=== PATIENT | male | born 1945 | race Caucasian/White ===

== ENCOUNTER 2022-08-10 14:17 | Inpatient (IN) | payer OTHER ==
[~2022-08-10] VITALS: Ht 167.6 cm; Wt 63.5 kg
[~2022-08-10 14:17] MED LIST: BUPR300T55 PO; BUSP10TA3 PO; GABA600T PO; GLU500 PO; LISI40TA13 PO; MV-M1TAB19 PO; NOR10 PO; PRAV40TA PO; ROPI2TAB4 PO; TERA10CA4 PO; [UNRECOGNIZED DRUG - OTHER] SUBCUT
[2022-08-10 14:18] VITALS: BP_SYST 143
[2022-08-10] MEDS ORDERED: KETOROLAC TROMETHAMINE 30 MG VIAL IVP ONE (14:45)
[2022-08-10] MEDS ORDERED: NACL 0.9% 1,000 ML IV ONE ×2 (14:45→18:45)
[2022-08-10] MEDS ORDERED: PERC10 PO (14:58)
[2022-08-10] MEDS ORDERED: CARV3.1246 PO (14:58)
[2022-08-10] MEDS ORDERED: INSU100V11 SQ (14:58)
[2022-08-10] MEDS ORDERED: VITA1CAP PO (14:58)
[2022-08-10 15:24] LABS: BASOPHILS % (AUTO) 0.2 % (0.0-2.0); EOSINOPHILS # (AUTO) 0.1 K/uL (0.0-0.4); EOSINOPHILS % (AUTO) 0.8 % (0.0-4.0); HEMATOCRIT 31.6 % (36-54); HEMOGLOBIN 10.7 g/dL (14.0-18.0); LYMPHOCYTES # (AUTO) 0.7 K/uL (1.0-5.5); LYMPHOCYTES % (AUTO) 7.2 % (20.5-51.5); MEAN CORPUSCULAR HEMOGLOBIN 30 pg (27-31); MEAN CORPUSCULAR HGB CONC 34 % (32-36); MEAN CORPUSCULAR VOLUME 88 fL (79.0-98.0); MONOCYTES # (AUTO) 0.7 K/uL (0.0-1.0); MONOCYTES % (AUTO) 7.2 % (1.7-9.3); NEUTROPHILS # (AUTO) 8.4 K/uL (1.8-7.7); NEUTROPHILS % (AUTO) 84.6 % (40.0-70.0); PLATELET COUNT (AUTO) 245 K/uL (130-430); RED BLOOD CELL COUNT(AUTO) 3.58 MIL/uL (4.2-6.2); RED CELL DISTRIBUTION WIDTH 14.7 % (9.0-15.0); WHITE BLOOD COUNT (AUTO) 9.9 K/uL (4.8-10.8)
[2022-08-10 15:45] LABS: ANION GAP 8 (5-15); CALCIUM 8.2 mg/dL (8.4-11.0); CHLORIDE 102 mmol/L (98-107); CREATININE 1.13 mg/dL (0.55-1.30); GLUCOSE 170 mg/dL (70-99); UREA NITROGEN, BLOOD 17 mg/dL (8-21)
[2022-08-10 15:50] LABS: ALANINE AMINOTRANSFERASE 13 U/L (12-78); ALBUMIN 2.1 g/dL (3.4-4.8); ASPARTATE AMINOTRANSFERASE 14 U/L (10-37); TOTAL BILIRUBIN 0.2 mg/dL (0.0-1.0)
[2022-08-10 18:22] LABS: BILIRUBIN,URINE NEGATIVE (NEGATIVE); BLOOD, URINE NEGATIVE (NEGATIVE); CLARITY/URINE CLEAR (CLEAR); COLOR,URINE YELLOW (YELLOW); GLUCOSE,URINE TRACE (NEGATIVE); KETONES,URINE NEGATIVE (NEGATIVE); LEUKOCYTE ESTERASE ,URINE NEGATIVE (NEGATIVE); NITRITE, URINE NEGATIVE (NEGATIVE); PH,URINE 5.5 (5.0-8.0); PROTEIN URINE NEGATIVE (NEGATIVE); UROBILINOGEN,URINE 0.2 (0.2-1.0)
[2022-08-10] MEDS ORDERED: D5NS 1,000 ML IV SCH (18:45)
[2022-08-10] MEDS ORDERED: PIPERACILLIN/TAZO 3.375 GM in NS 50 ML IV ONE (18:45)
[2022-08-10] MEDS ORDERED: ONDANSETRON HCL 4 MG/2 ML VIAL IVP PRN (18:45)
[2022-08-10] MEDS ORDERED: PIPERACILLIN/TAZOBACTAM 3.375 GM/VIAL (ZOSYN) IV ONE (18:59)
[2022-08-10] MEDS ORDERED: DEXTROSE 50% JECT 50 ML DISP.SYRIN ONE (21:54)
[2022-08-10] MEDS ORDERED: D5W 1,000 ML IV PRN (22:00)
[2022-08-10] MEDS ORDERED: DEXTROSE 50% JECT 50 ML DISP.SYRIN IVP PRN (22:00)
[2022-08-10] MEDS: D10W 1,000 ML IV SCH (22:14)
[2022-08-10 22:25] VITALS: BP_SYST 124
[2022-08-11 00:50] VITALS: BP_SYST 130
[2022-08-11] MEDS: D10W 1,000 ML IV SCH (06:25)
[2022-08-11 08:00] VITALS: BP_SYST 165
[2022-08-11] MEDS: MORPHINE 4 MG INJ. 4 MG/ML VIAL IVP PRN ×4 (11:07→21:02)
[2022-08-11 11:31] VITALS: BP_SYST 164
[2022-08-11] MEDS ORDERED: GADOTERATE MEGLUMINE 7.5 MMOL/15 ML VIAL IV ONE (11:40)
[2022-08-11] MEDS: LIPASE/PROTEASE/AMYLASE 1 CAP PO SCH ×2 (14:04→18:13)
[2022-08-11] MEDS ORDERED: D5W 1,000 ML IV SCH (14:15)
[2022-08-11] MEDS ORDERED: GASTROGRAFIN 120 ML ONE (14:41)
[2022-08-11 16:00] VITALS: BP_SYST 148
[2022-08-11] MEDS ORDERED: 0.45% NACL 1,000 ML IV SCH (18:45)
[2022-08-11] MEDS ORDERED: hydrALAZINE HCL 20 MG/ML VIAL IVP PRN (18:45)
[2022-08-11] MEDS ORDERED: BISACODYL 10 MG/SUPPOSITORY RC PRN (18:45)
[2022-08-11 20:20] VITALS: BP_SYST 147
[2022-08-11 23:30] VITALS: BP_SYST 148
[2022-08-11] MEDS: IPRATROPIUM/ALBUTEROL SULFATE 3 ML AMPUL.NEB (DUONEB) INH SCH (23:34)
[2022-08-12] VITALS: BP_SYST 145
[2022-08-12] MEDS: IPRATROPIUM/ALBUTEROL SULFATE 3 ML AMPUL.NEB (DUONEB) INH SCH ×5 (04:02→19:40)
[2022-08-12] MEDS: INSULIN REGULAR, HUMAN 100 UNITS/ML, 3 ML VIAL (humuLIN R) SUBCUT PRN ×2 (06:43→13:32)
[2022-08-12 08:08] LABS: BILIRUBIN,URINE NEGATIVE (NEGATIVE); BLOOD, URINE 3+ (NEGATIVE); COLOR,URINE YELLOW (YELLOW); GLUCOSE,URINE 1+ (NEGATIVE); KETONES,URINE NEGATIVE (NEGATIVE); LEUKOCYTE ESTERASE ,URINE NEGATIVE (NEGATIVE); NITRITE, URINE NEGATIVE (NEGATIVE); PH,URINE 6.5 (5.0-8.0); PROTEIN URINE 1+ (NEGATIVE); UROBILINOGEN,URINE 0.2 (0.2-1.0)
[2022-08-12 09:38] LABS: CLARITY/URINE SLIGHTLY HAZY (CLEAR)
[2022-08-12 09:41] LABS: BACTERIA,URINE FEW /HPF (None Seen); WBC,URINE 0-3 /HPF (0-3)
[2022-08-12] MEDS: LIPASE/PROTEASE/AMYLASE 1 CAP PO SCH ×2 (10:44→12:00)
[2022-08-12 12:00] VITALS: BP_SYST 108
[2022-08-12 16:00] VITALS: BP_SYST 154
[2022-08-12] MEDS ORDERED: INSULIN REGULAR, HUMAN 100 UNITS/ML, 3 ML VIAL SUBCUT ONE ×2 (20:30→20:45)
[2022-08-12] MEDS ORDERED: INSULIN GLARGINE 100 UNITS/ML, 10 ML VIAL SUBCUT ONE (20:45)
== END 2022-08-12 21:00 | disposition left against medical advice (07) | DRG 388 ==
LOC: SED 14:17 → STU 18:36
PROVIDERS: ADMIT Internal Medicine; ATTEND Internal Medicine
DX: K56.7 Ileus, unspecified (principal); E43 Unspecified severe protein-calorie malnutrition; J96.01 Acute respiratory failure with hypoxia; E87.20 Acidosis, unspecified; K86.0 Alcohol-induced chronic pancreatitis; K86.2 Cyst of pancreas; K59.00 Constipation, unspecified; E78.5 Hyperlipidemia, unspecified; I12.9 Hypertensive chronic kidney disease with stage 1 through stage 4 chronic kidney disease, or unspecified chronic kidney disease; E11.22 Type 2 diabetes mellitus with diabetic chronic kidney disease; N18.2 Chronic kidney disease, stage 2 (mild); M19.90 Unspecified osteoarthritis, unspecified site; R33.9 Retention of urine, unspecified; F10.10 Alcohol abuse, uncomplicated; Y90.9 Presence of alcohol in blood, level not specified; Z20.822 Contact with and (suspected) exposure to COVID-19; Z88.5 Allergy status to narcotic agent; Z79.899 Other long term (current) drug therapy; Z68.22 Body mass index [BMI] 22.0-22.9, adult
CPT/HCPCS: 36415; 71045; 74183; 74250-TC; 76376; 80053; 81000; 81003; 83605; 85025; 87040; 87081; 94640; 94760; 96365; 96375; 97116-GP; 97163-GP; 99291; A9575; G0378; J1815; J1885; J2270; J2405; J2543; Q9963

== ENCOUNTER 2023-04-21 18:35 | Inpatient (IN) | payer OTHER ==
[~2023-04-21] VITALS: Ht 167.6 cm; Wt 57.6 kg
[~2023-04-21 18:35] MED LIST changes: +CARV3.1246 PO; +INSU100V11 SQ; +PERC10 PO; +VITA1CAP PO
[2023-04-21 18:51] VITALS: BP_SYST 101; PULSE 74; RESP 16; TEMP 97.9; O2SAT 97
[2023-04-21] MEDS ORDERED: PIPERACILLIN/TAZO 3.375 GM in NS 50 ML IV ONE (21:15)
[2023-04-21] MEDS ORDERED: NACL 0.9% 1,000 ML IV ONE (21:15)
[2023-04-21] MEDS ORDERED: PIPERACILLIN/TAZOBACTAM 3.375 GM/VIAL (ZOSYN) IV ONE (21:44)
[2023-04-21 21:45] LABS: BASOPHILS % (AUTO) 0.3 % (0.0-2.0); EOSINOPHILS # (AUTO) 0.1 K/uL (0.0-0.4); EOSINOPHILS % (AUTO) 0.9 % (0.0-4.0); HEMATOCRIT 35.5 % (36-54); HEMOGLOBIN 11.5 g/dL (14.0-18.0); LYMPHOCYTES # (AUTO) 0.7 K/uL (1.0-5.5); LYMPHOCYTES % (AUTO) 7.9 % (20.5-51.5); MEAN CORPUSCULAR HEMOGLOBIN 30 pg (27-31); MEAN CORPUSCULAR HGB CONC 33 % (32-36); MEAN CORPUSCULAR VOLUME 92 fL (79.0-98.0); MONOCYTES % (AUTO) 11.5 % (1.7-9.3); NEUTROPHILS % (AUTO) 79.4 % (40.0-70.0); PLATELET COUNT (AUTO) 236 K/uL (130-430); RED BLOOD CELL COUNT(AUTO) 3.87 MIL/uL (4.2-6.2); RED CELL DISTRIBUTION WIDTH 13.5 % (9.0-15.0); WHITE BLOOD COUNT (AUTO) 8.9 K/uL (4.8-10.8)
[2023-04-21 22:00] LABS: ANION GAP 11 (5-15); CALCIUM 8.8 mg/dL (8.4-11.0); CARBON DIOXIDE 24 mmol/L (23-29); CHLORIDE 101 mmol/L (98-107); CREATININE 0.97 mg/dL (0.55-1.30); GLUCOSE 138 mg/dL (74-106); SODIUM SERUM 136 mmol/L (136-145); UREA NITROGEN, BLOOD 17 mg/dL (8-21)
[2023-04-21] MEDS ORDERED: ONDANSETRON HCL 4 MG/2 ML VIAL IVP ONE (22:00)
[2023-04-21] MEDS ORDERED: MORPHINE 4 MG INJ. 4 MG/ML VIAL IVP ONE (22:00)
[2023-04-21 22:05] LABS: ALANINE AMINOTRANSFERASE 16 U/L (12-78); ALBUMIN 2.5 g/dL (3.4-4.8); ASPARTATE AMINOTRANSFERASE 21 U/L (10-37); TOTAL BILIRUBIN 0.4 mg/dL (0.0-1.0); TOTAL PROTEIN, SERUM 6.8 g/dL (6.4-8.3)
[2023-04-21 22:10] LABS: POTASSIUM 4.4 mmol/L (3.5-5.1)
[2023-04-21 22:19] LABS: INR 1.3 (0.80-1.20); PROTHROMBIN TIME 13.1 SECS (9.5-12.5)
[2023-04-21] MEDS ORDERED: NACL 0.9% 1,000 ML IV SCH (23:00)
[2023-04-21] MEDS ORDERED: ONDANSETRON HCL 4 MG/2 ML VIAL IVP PRN (23:00)
[2023-04-21] MEDS ORDERED: ACETAMINOPHEN 325 MG TABLET PO PRN (23:00)
[2023-04-21 23:47] LABS: BILIRUBIN,URINE NEGATIVE (NEGATIVE); BLOOD, URINE NEGATIVE (NEGATIVE); COLOR,URINE YELLOW (YELLOW); GLUCOSE,URINE NEGATIVE (NEGATIVE); KETONES,URINE NEGATIVE (NEGATIVE); NITRITE, URINE POSITIVE (NEGATIVE); PH,URINE 5.5 (5.0-8.0); PROTEIN URINE 2+ (NEGATIVE); UROBILINOGEN,URINE 0.2 (0.2-1.0)
[2023-04-21 23:57] LABS: CLARITY/URINE CLOUDY (CLEAR); LEUKOCYTE ESTERASE ,URINE 1+ (NEGATIVE)
[2023-04-22 00:02] LABS: BACTERIA,URINE MANY /HPF (None Seen); RBC,URINE 0-3 /HPF (0-3); WBC,URINE 20-50 /HPF (0-3)
[2023-04-22 00:07] VITALS: BP_SYST 157; PULSE 58; RESP 18; TEMP 97.9; O2SAT 97
[2023-04-22 05:05] LABS: BASOPHILS % (AUTO) 0.7 % (0.0-2.0); EOSINOPHILS # (AUTO) 0.2 K/uL (0.0-0.4); EOSINOPHILS % (AUTO) 2.6 % (0.0-4.0); HEMOGLOBIN 9.8 g/dL (14.0-18.0); LYMPHOCYTES # (AUTO) 0.8 K/uL (1.0-5.5); LYMPHOCYTES % (AUTO) 12.2 % (20.5-51.5); MEAN CORPUSCULAR HEMOGLOBIN 30 pg (27-31); MEAN CORPUSCULAR HGB CONC 33 % (32-36); MEAN CORPUSCULAR VOLUME 91 fL (79.0-98.0); MONOCYTES # (AUTO) 0.8 K/uL (0.0-1.0); MONOCYTES % (AUTO) 11.2 % (1.7-9.3); NEUTROPHILS # (AUTO) 4.9 K/uL (1.8-7.7); NEUTROPHILS % (AUTO) 73.3 % (40.0-70.0); PLATELET COUNT (AUTO) 229 K/uL (130-430); RED CELL DISTRIBUTION WIDTH 13.4 % (9.0-15.0); WHITE BLOOD COUNT (AUTO) 6.8 K/uL (4.8-10.8)
[2023-04-22 05:39] LABS: ALANINE AMINOTRANSFERASE 14 U/L (12-78); ANION GAP 7 (5-15); ASPARTATE AMINOTRANSFERASE 10 U/L (10-37); CALCIUM 8.1 mg/dL (8.4-11.0); CARBON DIOXIDE 26 mmol/L (23-29); CHLORIDE 103 mmol/L (98-107); CREATININE 0.88 mg/dL (0.55-1.30); GLUCOSE 65 mg/dL (74-106); PHOSPHORUS 3.3 mg/dL (2.7-4.5); SODIUM SERUM 136 mmol/L (136-145); TOTAL BILIRUBIN 0.3 mg/dL (0.0-1.0); TOTAL PROTEIN, SERUM 5.4 g/dL (6.4-8.3); UREA NITROGEN, BLOOD 14 mg/dL (8-21)
[2023-04-22 06:01] LABS: POTASSIUM 2.7 mmol/L (3.5-5.1)
[2023-04-22] MEDS ORDERED: VANCOMYCIN HCL 1000 MG/VIAL IV ONE (06:12)
[2023-04-22] MEDS ORDERED: PIPERACILLIN/TAZOBACTAM 3.375 GM/VIAL (ZOSYN) IV ONE (06:12)
[2023-04-22] MEDS: PIPERACILLIN/TAZO 3.375/DEX-IS 50 ML IV SCH ×4 (06:19→23:22)
[2023-04-22 06:24] LABS: HEMOGLOBIN A1C 12.52 % (<5.7)
[2023-04-22] MEDS ORDERED: D5/0.45 NS 1,000 ML IV SCH (06:45)
[2023-04-22] MEDS ORDERED: VANCOMYCIN HCL 1 GM/NS PREMIX 250 ML IV ONE (07:00)
[2023-04-22 08:00] VITALS: BP_SYST 155; PULSE 67; RESP 14; TEMP 97.7; O2SAT 95
[2023-04-22] MEDS ORDERED: KCL 20 mEq in 100 mL (PREMIX) 100 ML IV ONE ×2 (08:00→10:00)
[2023-04-22 11:02] VITALS: O2SAT 95
[2023-04-22 12:00] VITALS: BP_SYST 104; PULSE 60; RESP 14; TEMP 97.7; O2SAT 97
[2023-04-22 13:01] LABS: PROTHROMBIN TIME 10.8 SECS (9.5-12.5)
[2023-04-22] MEDS ORDERED: PRAVASTATIN SODIUM 20 MG TABLET (PRAVACHOL) PO SCH (14:45)
[2023-04-22] MEDS: traMADol HCL HCL 50 MG TABLET (ULTRAM) PO PRN ×2 (14:55→21:12)
[2023-04-22] MEDS ORDERED: amLODIPine BESYLATE 10 MG TABLET PO ONE (15:00)
[2023-04-22] MEDS ORDERED: lisinopriL 20 MG TABLET PO ONE (15:00)
[2023-04-22] MEDS ORDERED: ACETAMINOPHEN 325 MG TABLET PO PRN (15:00)
[2023-04-22] MEDS: VANCOMYCIN HCL 1,000 MG in NS 250 ML IV SCH (15:44)
[2023-04-22 16:00] VITALS: BP_SYST 165; PULSE 64; RESP 18; TEMP 98.6; O2SAT 96
[2023-04-22 20:00] VITALS: BP_SYST 143; PULSE 76; RESP 18; TEMP 97.6; O2SAT 95
[2023-04-22] MEDS: CARVEDILOL 3.125 MG TABLET (COREG) PO SCH (21:12)
[2023-04-22] MEDS: ATORVASTATIN 10 MG TABLET PO SCH (21:12)
[2023-04-22] MEDS: INSULIN GLARGINE 100 UNITS/ML, 10 ML VIAL SUBCUT SCH (21:13)
[2023-04-22] MEDS: INSULIN REGULAR, HUMAN 100 UNITS/ML, 3 ML VIAL (humuLIN R) SUBCUT PRN (21:15)
[2023-04-23] VITALS: BP_SYST 131; PULSE 75; RESP 16; TEMP 97.7; O2SAT 95
[2023-04-23] MEDS: VANCOMYCIN HCL 1,000 MG in NS 250 ML IV SCH ×3 (00:20→16:00)
[2023-04-23] MEDS: NACL 0.9% 1,000 ML IV SCH ×3 (01:55→23:11)
[2023-04-23] MEDS: traMADol HCL HCL 50 MG TABLET (ULTRAM) PO PRN ×3 (04:41→20:50)
[2023-04-23] MEDS: PIPERACILLIN/TAZO 3.375/DEX-IS 50 ML IV SCH ×4 (05:12→23:37)
[2023-04-23 06:47] LABS: BASOPHILS % (AUTO) 0.7 % (0.0-2.0); EOSINOPHILS # (AUTO) 0.3 K/uL (0.0-0.4); EOSINOPHILS % (AUTO) 4.9 % (0.0-4.0); HEMATOCRIT 31.9 % (36-54); HEMOGLOBIN 10.6 g/dL (14.0-18.0); LYMPHOCYTES # (AUTO) 0.7 K/uL (1.0-5.5); LYMPHOCYTES % (AUTO) 11.3 % (20.5-51.5); MEAN CORPUSCULAR HEMOGLOBIN 30 pg (27-31); MEAN CORPUSCULAR HGB CONC 33 % (32-36); MEAN CORPUSCULAR VOLUME 91 fL (79.0-98.0); MONOCYTES # (AUTO) 0.7 K/uL (0.0-1.0); MONOCYTES % (AUTO) 11.7 % (1.7-9.3); NEUTROPHILS # (AUTO) 4.4 K/uL (1.8-7.7); NEUTROPHILS % (AUTO) 71.4 % (40.0-70.0); PLATELET COUNT (AUTO) 277 K/uL (130-430); RED CELL DISTRIBUTION WIDTH 13.4 % (9.0-15.0); WHITE BLOOD COUNT (AUTO) 6.1 K/uL (4.8-10.8)
[2023-04-23 07:08] LABS: ALANINE AMINOTRANSFERASE 12 U/L (12-78); ANION GAP 6 (5-15); ASPARTATE AMINOTRANSFERASE 9 U/L (10-37); CALCIUM 8.2 mg/dL (8.4-11.0); CARBON DIOXIDE 27 mmol/L (23-29); CHLORIDE 100 mmol/L (98-107); CREATININE 1.04 mg/dL (0.55-1.30); GLUCOSE 138 mg/dL (74-106); POTASSIUM 3.4 mmol/L (3.5-5.1); SODIUM SERUM 133 mmol/L (136-145); TOTAL BILIRUBIN 0.3 mg/dL (0.0-1.0); TOTAL PROTEIN, SERUM 5.5 g/dL (6.4-8.3); UREA NITROGEN, BLOOD 12 mg/dL (8-21)
[2023-04-23 08:44] VITALS: BP_SYST 186; PULSE 68; RESP 18; TEMP 98.4; O2SAT 96
[2023-04-23] MEDS: amLODIPine BESYLATE 10 MG TABLET PO SCH (08:52)
[2023-04-23] MEDS: CARVEDILOL 3.125 MG TABLET (COREG) PO SCH ×2 (08:54→20:50)
[2023-04-23] MEDS: buPROPion HCL 150 MG XL TAB PO SCH (08:54)
[2023-04-23] MEDS: lisinopriL 20 MG TABLET PO SCH (08:55)
[2023-04-23] MEDS ORDERED: hydrALAZINE HCL 20 MG/ML VIAL IVP PRN (09:45)
[2023-04-23] MEDS ORDERED: POTASSIUM CHLORIDE 20 MEQ TAB.PRT.SR PO ONE (10:45)
[2023-04-23] MEDS: INSULIN REGULAR, HUMAN 100 UNITS/ML, 3 ML VIAL (humuLIN R) SUBCUT PRN ×2 (11:58→20:58)
[2023-04-23 12:50] VITALS: BP_SYST 154; PULSE 76; RESP 18; TEMP 98.4; O2SAT 94
[2023-04-23 16:10] VITALS: BP_SYST 161; PULSE 73; RESP 18; TEMP 98.2; O2SAT 93
[2023-04-23 20:00] VITALS: BP_SYST 152; PULSE 63; RESP 18; TEMP 97.7; O2SAT 96
[2023-04-23] MEDS: ATORVASTATIN 10 MG TABLET PO SCH (20:49)
[2023-04-23] MEDS: INSULIN GLARGINE 100 UNITS/ML, 10 ML VIAL SUBCUT SCH (20:53)
[2023-04-24] VITALS (8 sets, daily range): BP systolic 146–179; PULSE 20–89; RESP 16–20; TEMP 97.4–97.9; O2SAT 95–97
[2023-04-24] MEDS: VANCOMYCIN HCL 1,000 MG in NS 250 ML IV SCH ×3 (00:16→16:11)
[2023-04-24] MEDS: traMADol HCL HCL 50 MG TABLET (ULTRAM) PO PRN ×4 (03:07→19:20)
[2023-04-24] MEDS: PIPERACILLIN/TAZO 3.375/DEX-IS 50 ML IV SCH ×3 (06:20→18:14)
[2023-04-24] MEDS: BALSAM PERU/CASTOR OIL 56.7 GM OINT...G. TP SCH (09:40)
[2023-04-24] MEDS: buPROPion HCL 150 MG XL TAB PO SCH (09:41)
[2023-04-24] MEDS: lisinopriL 20 MG TABLET PO SCH (09:41)
[2023-04-24] MEDS: amLODIPine BESYLATE 10 MG TABLET PO SCH (09:41)
[2023-04-24] MEDS: CARVEDILOL 3.125 MG TABLET (COREG) PO SCH ×2 (09:42→20:28)
[2023-04-24] MEDS: ATORVASTATIN 10 MG TABLET PO SCH (20:27)
[2023-04-24] MEDS: INSULIN GLARGINE 100 UNITS/ML, 10 ML VIAL SUBCUT SCH (20:34)
[2023-04-24] MEDS: INSULIN REGULAR, HUMAN 100 UNITS/ML, 3 ML VIAL (humuLIN R) SUBCUT PRN (20:36)
[2023-04-24] MEDS: NACL 0.9% 1,000 ML IV SCH (23:25)
[2023-04-25] MEDS: PIPERACILLIN/TAZO 3.375/DEX-IS 50 ML IV SCH ×3 (00:02→11:16)
[2023-04-25] MEDS: VANCOMYCIN HCL 1,000 MG in NS 250 ML IV SCH (00:04)
[2023-04-25 00:12] VITALS: BP_SYST 148; PULSE 73; RESP 18; TEMP 97.4; O2SAT 96
[2023-04-25] MEDS: traMADol HCL HCL 50 MG TABLET (ULTRAM) PO PRN (01:02)
[2023-04-25] MEDS: MORPHINE 2 MG/ML INJ. SYRINGE IVP PRN (05:08)
[2023-04-25] MEDS: INSULIN REGULAR, HUMAN 100 UNITS/ML, 3 ML VIAL (humuLIN R) SUBCUT PRN ×4 (06:39→20:36)
[2023-04-25 06:47] LABS: BASOPHILS % (AUTO) 0.7 % (0.0-2.0); EOSINOPHILS # (AUTO) 0.1 K/uL (0.0-0.4); EOSINOPHILS % (AUTO) 2.3 % (0.0-4.0); LYMPHOCYTES # (AUTO) 0.6 K/uL (1.0-5.5); LYMPHOCYTES % (AUTO) 10.6 % (20.5-51.5); MEAN CORPUSCULAR HEMOGLOBIN 29 pg (27-31); MEAN CORPUSCULAR HGB CONC 33 % (32-36); MEAN CORPUSCULAR VOLUME 90 fL (79.0-98.0); MONOCYTES # (AUTO) 0.7 K/uL (0.0-1.0); MONOCYTES % (AUTO) 12.9 % (1.7-9.3); NEUTROPHILS # (AUTO) 4.1 K/uL (1.8-7.7); NEUTROPHILS % (AUTO) 73.5 % (40.0-70.0); PLATELET COUNT (AUTO) 342 K/uL (130-430); RED BLOOD CELL COUNT(AUTO) 4.11 MIL/uL (4.2-6.2); RED CELL DISTRIBUTION WIDTH 13.6 % (9.0-15.0); WHITE BLOOD COUNT (AUTO) 5.6 K/uL (4.8-10.8)
[2023-04-25 07:05] LABS: ALANINE AMINOTRANSFERASE 15 U/L (12-78); ALBUMIN 2.2 g/dL (3.4-4.8); ANION GAP 10 (5-15); ASPARTATE AMINOTRANSFERASE 14 U/L (10-37); CALCIUM 8.4 mg/dL (8.4-11.0); CARBON DIOXIDE 25 mmol/L (23-29); CHLORIDE 101 mmol/L (98-107); CREATININE 0.99 mg/dL (0.55-1.30); GLUCOSE 156 mg/dL (74-106); SODIUM SERUM 136 mmol/L (136-145); TOTAL BILIRUBIN 0.3 mg/dL (0.0-1.0); TOTAL PROTEIN, SERUM 5.9 g/dL (6.4-8.3); UREA NITROGEN, BLOOD 13 mg/dL (8-21)
[2023-04-25 07:34] LABS: POTASSIUM 2.9 mmol/L (3.5-5.1)
[2023-04-25 08:00] VITALS: BP_SYST 118; PULSE 76; RESP 16; TEMP 98.4; O2SAT 98
[2023-04-25] MEDS ORDERED: KCL 40 mEq in 100 mL (PREMIX) 100 ML IV ONE (08:30)
[2023-04-25] MEDS: TAMSULOSIN HCL 0.4 MG CAP PO SCH (09:26)
[2023-04-25] MEDS: buPROPion HCL 150 MG XL TAB PO SCH (09:26)
[2023-04-25] MEDS: lisinopriL 20 MG TABLET PO SCH (09:27)
[2023-04-25] MEDS: amLODIPine BESYLATE 10 MG TABLET PO SCH (09:27)
[2023-04-25] MEDS: CARVEDILOL 3.125 MG TABLET (COREG) PO SCH ×2 (09:28→20:33)
[2023-04-25] MEDS: BALSAM PERU/CASTOR OIL 56.7 GM OINT...G. TP SCH (09:32)
[2023-04-25] MEDS: POTASSIUM CHLORIDE 20 mEq in 100 mL (PREMIX) 100 ML x 2 doses IV SCH ×2 (09:36→11:16)
[2023-04-25 12:27] VITALS: BP_SYST 129; PULSE 75; RESP 17; TEMP 98; O2SAT 98
[2023-04-25 15:35] VITALS: BP_SYST 121; PULSE 77; RESP 16; TEMP 98.2; O2SAT 97
[2023-04-25 16:00] VITALS: BP_SYST 122; PULSE 84; RESP 18; TEMP 98.2; O2SAT 97
[2023-04-25] MEDS: NACL 0.9% 1,000 ML IV SCH (16:43)
[2023-04-25 20:00] VITALS: BP_SYST 119; PULSE 80; RESP 18; TEMP 98; O2SAT 98
[2023-04-25] MEDS: ATORVASTATIN 10 MG TABLET PO SCH (20:34)
[2023-04-25] MEDS: ZOLPIDEM TARTRATE 5 MG TABLET PO PRN (20:57)
[2023-04-25] MEDS ORDERED: INSULIN GLARGINE 100 UNITS/ML, 10 ML VIAL SUBCUT SCH (21:00)
[2023-04-26 00:51] VITALS: PULSE 71; RESP 18; TEMP 97.1; O2SAT 96
[2023-04-26] MEDS: MORPHINE 2 MG/ML INJ. SYRINGE IVP PRN (00:57)
[2023-04-26 06:05] LABS: BASOPHILS % (AUTO) 0.5 % (0.0-2.0); EOSINOPHILS # (AUTO) 0.2 K/uL (0.0-0.4); EOSINOPHILS % (AUTO) 2.3 % (0.0-4.0); HEMATOCRIT 36.9 % (36-54); HEMOGLOBIN 12.3 g/dL (14.0-18.0); LYMPHOCYTES # (AUTO) 1.5 K/uL (1.0-5.5); MEAN CORPUSCULAR HEMOGLOBIN 30 pg (27-31); MEAN CORPUSCULAR HGB CONC 33 % (32-36); MEAN CORPUSCULAR VOLUME 89 fL (79.0-98.0); MONOCYTES % (AUTO) 12.2 % (1.7-9.3); NEUTROPHILS # (AUTO) 5.7 K/uL (1.8-7.7); PLATELET COUNT (AUTO) 396 K/uL (130-430); RED BLOOD CELL COUNT(AUTO) 4.15 MIL/uL (4.2-6.2); RED CELL DISTRIBUTION WIDTH 13.5 % (9.0-15.0); WHITE BLOOD COUNT (AUTO) 8.5 K/uL (4.8-10.8)
[2023-04-26 06:59] LABS: ALANINE AMINOTRANSFERASE 15 U/L (12-78); ALBUMIN 2.4 g/dL (3.4-4.8); ANION GAP 7 (5-15); ASPARTATE AMINOTRANSFERASE 15 U/L (10-37); CALCIUM 8.7 mg/dL (8.4-11.0); CARBON DIOXIDE 29 mmol/L (23-29); CHLORIDE 102 mmol/L (98-107); CREATININE 0.96 mg/dL (0.55-1.30); SODIUM SERUM 138 mmol/L (136-145); TOTAL BILIRUBIN 0.3 mg/dL (0.0-1.0); TOTAL PROTEIN, SERUM 6.2 g/dL (6.4-8.3); UREA NITROGEN, BLOOD 9 mg/dL (8-21); VANCOMYCIN,RANDOM 20.6 ug/mL (20.0-30.0)
[2023-04-26 07:38] LABS: GLUCOSE 46 mg/dL (74-106); POTASSIUM 2.5 mmol/L (3.5-5.1)
[2023-04-26 08:00] VITALS: BP_SYST 122; PULSE 78; RESP 18; TEMP 98; O2SAT 96; O2SAT 98
[2023-04-26] MEDS ORDERED: KCL 40 mEq in 100 mL (PREMIX) 100 ML IV ONE (08:30)
[2023-04-26] MEDS ORDERED: POTASSIUM CHLORIDE 20 MEQ TAB.PRT.SR PO ONE (08:45)
[2023-04-26] MEDS: NACL 0.9% 1,000 ML IV SCH (09:05)
[2023-04-26] MEDS: lisinopriL 20 MG TABLET PO SCH (09:11)
[2023-04-26] MEDS: TAMSULOSIN HCL 0.4 MG CAP PO SCH (09:11)
[2023-04-26] MEDS: CARVEDILOL 3.125 MG TABLET (COREG) PO SCH ×2 (09:11→21:23)
[2023-04-26] MEDS: buPROPion HCL 150 MG XL TAB PO SCH (09:12)
[2023-04-26] MEDS: amLODIPine BESYLATE 10 MG TABLET PO SCH ×2 (09:13→21:22)
[2023-04-26] MEDS: BALSAM PERU/CASTOR OIL 56.7 GM OINT...G. TP SCH (09:16)
[2023-04-26] MEDS: POTASSIUM CHLORIDE 20 mEq in 100 mL (PREMIX) 100 ML x 2 doses IV SCH ×2 (09:26→11:15)
[2023-04-26] MEDS ORDERED: levoFLOXacin 500 MG TABLET PO SCH (10:00)
[2023-04-26 12:00] VITALS: BP_SYST 125; PULSE 75; RESP 17; TEMP 97.5; O2SAT 97
[2023-04-26] MEDS: INSULIN REGULAR, HUMAN 100 UNITS/ML, 3 ML VIAL (humuLIN R) SUBCUT PRN ×3 (12:12→21:33)
[2023-04-26 16:11] VITALS: BP_SYST 123; PULSE 77; RESP 18; TEMP 97.9; O2SAT 96
[2023-04-26] MEDS: traMADol HCL HCL 50 MG TABLET (ULTRAM) PO PRN (16:17)
[2023-04-26] MEDS: VANCOMYCIN HCL 750 MG in NS 250 ML IV SCH (17:48)
[2023-04-26] MEDS ORDERED: VANCOMYCIN HCL 1,000 MG in NS 250 ML IV SCH (18:00)
[2023-04-26 20:00] VITALS: BP_SYST 157; PULSE 90; RESP 18; TEMP 98.4; O2SAT 96
[2023-04-26] MEDS: ATORVASTATIN 10 MG TABLET PO SCH (21:21)
[2023-04-26] MEDS: INSULIN GLARGINE 100 UNITS/ML, 10 ML VIAL SUBCUT SCH (21:32)
[2023-04-27] VITALS (7 sets, daily range): BP systolic 154–162; PULSE 80–93; RESP 15–17; TEMP 97.5–98.6; O2SAT 94–97
[2023-04-27] MEDS: VANCOMYCIN HCL 750 MG in NS 250 ML IV SCH ×2 (05:27→17:59)
[2023-04-27 06:45] LABS: BASOPHILS # (AUTO) 0.1 K/uL (0.0-0.2); BASOPHILS % (AUTO) 0.6 % (0.0-2.0); EOSINOPHILS # (AUTO) 0.1 K/uL (0.0-0.4); EOSINOPHILS % (AUTO) 1.6 % (0.0-4.0); HEMATOCRIT 35.3 % (36-54); HEMOGLOBIN 11.5 g/dL (14.0-18.0); LYMPHOCYTES # (AUTO) 1.1 K/uL (1.0-5.5); LYMPHOCYTES % (AUTO) 13.4 % (20.5-51.5); MEAN CORPUSCULAR HEMOGLOBIN 29 pg (27-31); MEAN CORPUSCULAR HGB CONC 33 % (32-36); MEAN CORPUSCULAR VOLUME 90 fL (79.0-98.0); MONOCYTES # (AUTO) 0.9 K/uL (0.0-1.0); MONOCYTES % (AUTO) 11.1 % (1.7-9.3); NEUTROPHILS % (AUTO) 73.3 % (40.0-70.0); PLATELET COUNT (AUTO) 377 K/uL (130-430); RED BLOOD CELL COUNT(AUTO) 3.91 MIL/uL (4.2-6.2); RED CELL DISTRIBUTION WIDTH 13.5 % (9.0-15.0); WHITE BLOOD COUNT (AUTO) 8.2 K/uL (4.8-10.8)
[2023-04-27 07:11] LABS: ALANINE AMINOTRANSFERASE 19 U/L (12-78); ALBUMIN 2.4 g/dL (3.4-4.8); ANION GAP 8 (5-15); ASPARTATE AMINOTRANSFERASE 19 U/L (10-37); CALCIUM 8.7 mg/dL (8.4-11.0); CARBON DIOXIDE 28 mmol/L (23-29); CHLORIDE 102 mmol/L (98-107); CREATININE 1.11 mg/dL (0.55-1.30); GLUCOSE 52 mg/dL (74-106); POTASSIUM 3.4 mmol/L (3.5-5.1); SODIUM SERUM 138 mmol/L (136-145); TOTAL BILIRUBIN 0.2 mg/dL (0.0-1.0); TOTAL PROTEIN, SERUM 6.1 g/dL (6.4-8.3); UREA NITROGEN, BLOOD 11 mg/dL (8-21)
[2023-04-27] MEDS: TAMSULOSIN HCL 0.4 MG CAP PO SCH (10:06)
[2023-04-27] MEDS: buPROPion HCL 150 MG XL TAB PO SCH (10:06)
[2023-04-27] MEDS: lisinopriL 20 MG TABLET PO SCH (10:06)
[2023-04-27] MEDS: POTASSIUM CHLORIDE 20 MEQ TAB.PRT.SR PO SCH ×2 (10:07→20:26)
[2023-04-27] MEDS: CARVEDILOL 3.125 MG TABLET (COREG) PO SCH ×2 (10:07→20:27)
[2023-04-27] MEDS: BALSAM PERU/CASTOR OIL 56.7 GM OINT...G. TP SCH (10:08)
[2023-04-27] MEDS: MORPHINE 2 MG/ML INJ. SYRINGE IVP PRN (10:41)
[2023-04-27] MEDS: INSULIN REGULAR, HUMAN 100 UNITS/ML, 3 ML VIAL (humuLIN R) SUBCUT PRN ×2 (17:43→20:30)
[2023-04-27] MEDS: ATORVASTATIN 10 MG TABLET PO SCH (20:27)
[2023-04-27] MEDS: amLODIPine BESYLATE 10 MG TABLET PO SCH (20:27)
[2023-04-27] MEDS: INSULIN GLARGINE 100 UNITS/ML, 10 ML VIAL SUBCUT SCH (20:30)
[2023-04-27] MEDS: ZOLPIDEM TARTRATE 5 MG TABLET PO PRN (22:03)
[2023-04-28 00:33] VITALS: BP_SYST 155; PULSE 88; RESP 17; TEMP 98.2; O2SAT 93
[2023-04-28] MEDS: VANCOMYCIN HCL 750 MG in NS 250 ML IV SCH ×2 (05:09→17:51)
[2023-04-28 08:00] VITALS: BP_SYST 162; PULSE 88; RESP 15; TEMP 98.2; O2SAT 95
[2023-04-28] MEDS: TAMSULOSIN HCL 0.4 MG CAP PO SCH (09:45)
[2023-04-28] MEDS: BALSAM PERU/CASTOR OIL 56.7 GM OINT...G. TP SCH (09:45)
[2023-04-28] MEDS: buPROPion HCL 150 MG XL TAB PO SCH (09:45)
[2023-04-28] MEDS: POTASSIUM CHLORIDE 20 MEQ TAB.PRT.SR PO SCH ×2 (09:45→20:35)
[2023-04-28] MEDS: lisinopriL 20 MG TABLET PO SCH (09:46)
[2023-04-28] MEDS: CARVEDILOL 3.125 MG TABLET (COREG) PO SCH ×2 (09:49→20:35)
[2023-04-28 11:32] VITALS: BP_SYST 173; PULSE 71; RESP 20; TEMP 98.4; O2SAT 95
[2023-04-28] MEDS ORDERED: ALPRAZolam 0.25 MG TABLET PO PRN (15:15)
[2023-04-28 16:46] VITALS: BP_SYST 162; PULSE 87; RESP 19; TEMP 98.8; O2SAT 96
[2023-04-28] MEDS: INSULIN REGULAR, HUMAN 100 UNITS/ML, 3 ML VIAL (humuLIN R) SUBCUT PRN ×2 (17:26→20:47)
[2023-04-28 20:00] VITALS: BP_SYST 150; PULSE 91; RESP 18; TEMP 98.1; O2SAT 93
[2023-04-28] MEDS: ATORVASTATIN 10 MG TABLET PO SCH (20:35)
[2023-04-28] MEDS: amLODIPine BESYLATE 10 MG TABLET PO SCH (20:35)
[2023-04-28] MEDS: INSULIN GLARGINE 100 UNITS/ML, 10 ML VIAL SUBCUT SCH (20:44)
[2023-04-28 21:20] VITALS: O2SAT 93
[2023-04-29] VITALS (7 sets, daily range): BP systolic 149–161; PULSE 68–91; RESP 16–18; TEMP 97.8–98.4; O2SAT 93–98
[2023-04-29 04:33] LABS: BASOPHILS # (AUTO) 0.1 K/uL (0.0-0.2); BASOPHILS % (AUTO) 1.2 % (0.0-2.0); EOSINOPHILS # (AUTO) 0.2 K/uL (0.0-0.4); EOSINOPHILS % (AUTO) 2.6 % (0.0-4.0); HEMATOCRIT 32.3 % (36-54); HEMOGLOBIN 10.7 g/dL (14.0-18.0); LYMPHOCYTES # (AUTO) 0.7 K/uL (1.0-5.5); LYMPHOCYTES % (AUTO) 9.7 % (20.5-51.5); MEAN CORPUSCULAR HEMOGLOBIN 30 pg (27-31); MEAN CORPUSCULAR HGB CONC 33 % (32-36); MEAN CORPUSCULAR VOLUME 90 fL (79.0-98.0); MONOCYTES # (AUTO) 0.7 K/uL (0.0-1.0); MONOCYTES % (AUTO) 9.8 % (1.7-9.3); NEUTROPHILS # (AUTO) 5.4 K/uL (1.8-7.7); NEUTROPHILS % (AUTO) 76.7 % (40.0-70.0); PLATELET COUNT (AUTO) 323 K/uL (130-430); RED BLOOD CELL COUNT(AUTO) 3.61 MIL/uL (4.2-6.2); RED CELL DISTRIBUTION WIDTH 13.6 % (9.0-15.0); WHITE BLOOD COUNT (AUTO) 7.1 K/uL (4.8-10.8)
[2023-04-29 04:50] LABS: ALANINE AMINOTRANSFERASE 45 U/L (12-78); ALBUMIN 2.3 g/dL (3.4-4.8); ANION GAP 5 (5-15); ASPARTATE AMINOTRANSFERASE 63 U/L (10-37); CALCIUM 8.4 mg/dL (8.4-11.0); CARBON DIOXIDE 27 mmol/L (23-29); CHLORIDE 99 mmol/L (98-107); CREATININE 1.16 mg/dL (0.55-1.30); GLUCOSE 291 mg/dL (74-106); POTASSIUM 4.3 mmol/L (3.5-5.1); SODIUM SERUM 131 mmol/L (136-145); TOTAL BILIRUBIN 0.2 mg/dL (0.0-1.0); TOTAL PROTEIN, SERUM 5.5 g/dL (6.4-8.3); UREA NITROGEN, BLOOD 15 mg/dL (8-21)
[2023-04-29] MEDS ORDERED: VANCOMYCIN HCL 1000 MG/VIAL IV ONE (05:24)
[2023-04-29] MEDS: VANCOMYCIN HCL 750 MG in NS 250 ML IV SCH ×2 (06:16→17:06)
[2023-04-29] MEDS: INSULIN REGULAR, HUMAN 100 UNITS/ML, 3 ML VIAL (humuLIN R) SUBCUT PRN ×3 (06:18→17:00)
[2023-04-29] MEDS: TAMSULOSIN HCL 0.4 MG CAP PO SCH (08:16)
[2023-04-29] MEDS: buPROPion HCL 150 MG XL TAB PO SCH (08:16)
[2023-04-29] MEDS: POTASSIUM CHLORIDE 20 MEQ TAB.PRT.SR PO SCH (08:16)
[2023-04-29] MEDS: CARVEDILOL 3.125 MG TABLET (COREG) PO SCH (08:17)
[2023-04-29] MEDS: lisinopriL 20 MG TABLET PO SCH (08:19)
[2023-04-29] MEDS: BALSAM PERU/CASTOR OIL 56.7 GM OINT...G. TP SCH (09:00)
== END 2023-04-29 20:15 | DRG 559 ==
LOC: SED 18:35 → SMU 22:46
PROVIDERS: ADMIT Specialist; ATTEND Specialist
DX: T84.629A Infection and inflammatory reaction due to internal fixation device of unspecified bone of leg, initial encounter (principal); E43 Unspecified severe protein-calorie malnutrition; L02.611 Cutaneous abscess of right foot; L03.115 Cellulitis of right lower limb; N39.0 Urinary tract infection, site not specified; M86.8X7 Other osteomyelitis, ankle and foot; E11.69 Type 2 diabetes mellitus with other specified complication; M06.9 Rheumatoid arthritis, unspecified; M54.2 Cervicalgia; M54.9 Dorsalgia, unspecified; E11.610 Type 2 diabetes mellitus with diabetic neuropathic arthropathy; F32.A Depression, unspecified; F10.10 Alcohol abuse, uncomplicated; Y90.9 Presence of alcohol in blood, level not specified; E87.6 Hypokalemia; N31.2 Flaccid neuropathic bladder, not elsewhere classified; K29.70 Gastritis, unspecified, without bleeding; B95.62 Methicillin resistant Staphylococcus aureus infection as the cause of diseases classified elsewhere; Z88.5 Allergy status to narcotic agent; Z68.20 Body mass index [BMI] 20.0-20.9, adult; Y83.9 Surgical procedure, unspecified as the cause of abnormal reaction of the patient, or of later complication, without mention of misadventure at the time of the procedure; Y92.9 Unspecified place or not applicable
CPT/HCPCS: 36415; 71045; 73700-TC; 76376; 80053; 80202; 81000; 81001; 82962; 83037; 83605; 83735; 84100; 84132; 85025; 85610-TC; 85651-TC; 85730-TC; 87040; 87070-TC; 87086; 87186-TC; 93005; 96365; 96375; 97110-GP; 97530-GP; 99285; J0360; J1815; J2270; J2405; J2543; J3370; J3480; J7050

== ENCOUNTER 2023-08-05 21:13 | Inpatient (IN) | payer OTHER ==
[~2023-08-05] VITALS: Ht 167.6 cm; Wt 55.8 kg
[~2023-08-05 21:13] MED LIST changes: -VITA1CAP PO
[2023-08-05 21:25] VITALS: BP_SYST 109; PULSE 114; RESP 16; TEMP 97.9; O2SAT 100
[2023-08-05 23:28] LABS: BASOPHILS % (AUTO) 0.2 % (0.0-2.0); EOSINOPHILS # (AUTO) 0.1 K/uL (0.0-0.4); EOSINOPHILS % (AUTO) 1.2 % (0.0-4.0); HEMATOCRIT 35.1 % (36-54); LYMPHOCYTES # (AUTO) 0.6 K/uL (1.0-5.5); LYMPHOCYTES % (AUTO) 7.7 % (20.5-51.5); MEAN CORPUSCULAR HEMOGLOBIN 31 pg (27-31); MEAN CORPUSCULAR HGB CONC 34 % (32-36); MEAN CORPUSCULAR VOLUME 92 fL (79.0-98.0); MONOCYTES # (AUTO) 0.5 K/uL (0.0-1.0); MONOCYTES % (AUTO) 6.2 % (1.7-9.3); NEUTROPHILS # (AUTO) 6.7 K/uL (1.8-7.7); NEUTROPHILS % (AUTO) 84.7 % (40.0-70.0); PLATELET COUNT (AUTO) 238 K/uL (130-430); RED BLOOD CELL COUNT(AUTO) 3.83 MIL/uL (4.2-6.2); RED CELL DISTRIBUTION WIDTH 13.7 % (9.0-15.0); WHITE BLOOD COUNT (AUTO) 7.9 K/uL (4.8-10.8)
[2023-08-05 23:31] LABS: ANION GAP 6 (5-15); CALCIUM 8.6 mg/dL (8.4-11.0); CARBON DIOXIDE 33 mmol/L (23-29); CHLORIDE 98 mmol/L (98-107); GLUCOSE 353 mg/dL (74-106); POTASSIUM 3.9 mmol/L (3.5-5.1); SODIUM SERUM 137 mmol/L (136-145); UREA NITROGEN, BLOOD 22 mg/dL (8-21)
[2023-08-05] MEDS: KETOROLAC TROMETHAMINE 30 MG VIAL IVP ONE (23:51)
[2023-08-06 00:14] LABS: BILIRUBIN,URINE NEGATIVE (NEGATIVE); BLOOD, URINE 1+ (NEGATIVE); CLARITY/URINE SL CLOUDY (CLEAR); COLOR,URINE YELLOW (YELLOW); GLUCOSE,URINE 3+ (NEGATIVE); KETONES,URINE NEGATIVE (NEGATIVE); LEUKOCYTE ESTERASE ,URINE 1+ (NEGATIVE); NITRITE, URINE POSITIVE (NEGATIVE); PH,URINE 6.5 (5.0-8.0); PROTEIN URINE 1+ (NEGATIVE); UROBILINOGEN,URINE 0.2 (0.2-1.0)
[2023-08-06 00:22] LABS: BACTERIA,URINE MODERATE /HPF (None Seen); WBC,URINE >100 /HPF (0-3)
[2023-08-06] MEDS: cefTRIAXone 1 GM IVPB PREMIX 50 ML IV ONE (01:42)
[2023-08-06] MEDS: MORPHINE 4 MG INJ. 4 MG/ML VIAL IVP ONE (01:57)
[2023-08-06] MEDS: NACL 0.9% 1,000 ML IV SCH (03:00)
[2023-08-06] MEDS: NACL 0.9% 1,500 ML IV ONE (03:10)
[2023-08-06] MEDS ORDERED: ONDANSETRON HCL 4 MG/2 ML VIAL IVP PRN (09:45)
[2023-08-06] MEDS ORDERED: GLUCOSE (DEXTROSE) ORAL GEL -Adults PO PRN (09:45)
[2023-08-06] MEDS ORDERED: ACETAMINOPHEN 325 MG TABLET PO PRN ×2 (09:45→10:30)
[2023-08-06] MEDS ORDERED: KETOROLAC TROMETHAMINE 30 MG VIAL ONE (09:59)
[2023-08-06 10:00] LABS: BASOPHILS % (AUTO) 0.3 % (0.0-2.0); EOSINOPHILS # (AUTO) 0.1 K/uL (0.0-0.4); HEMATOCRIT 29.5 % (36-54); LYMPHOCYTES % (AUTO) 14.3 % (20.5-51.5); MEAN CORPUSCULAR HEMOGLOBIN 31 pg (27-31); MEAN CORPUSCULAR HGB CONC 34 % (32-36); MEAN CORPUSCULAR VOLUME 92 fL (79.0-98.0); MONOCYTES # (AUTO) 0.6 K/uL (0.0-1.0); MONOCYTES % (AUTO) 8.4 % (1.7-9.3); NEUTROPHILS # (AUTO) 5.1 K/uL (1.8-7.7); PLATELET COUNT (AUTO) 186 K/uL (130-430); RED BLOOD CELL COUNT(AUTO) 3.21 MIL/uL (4.2-6.2); WHITE BLOOD COUNT (AUTO) 6.7 K/uL (4.8-10.8)
[2023-08-06 10:11] LABS: ALANINE AMINOTRANSFERASE 39 U/L (12-78); ALBUMIN 2.5 g/dL (3.4-4.8); ANION GAP 7 (5-15); ASPARTATE AMINOTRANSFERASE 23 U/L (10-37); CARBON DIOXIDE 27 mmol/L (23-29); CHLORIDE 103 mmol/L (98-107); CREATININE 1.22 mg/dL (0.55-1.30); GLUCOSE 200 mg/dL (74-106); POTASSIUM 4.1 mmol/L (3.5-5.1); SODIUM SERUM 137 mmol/L (136-145); TOTAL BILIRUBIN 0.1 mg/dL (0.0-1.0); TOTAL PROTEIN, SERUM 5.7 g/dL (6.4-8.3); UREA NITROGEN, BLOOD 20 mg/dL (8-21)
[2023-08-06] MEDS: KETOROLAC TROMETHAMINE 30 MG VIAL IM PRN (11:16)
[2023-08-06 11:19] VITALS: O2SAT 96
[2023-08-06] MEDS: IPRATROPIUM BROM 0.5 MG/2.5 ML VIAL.NEB (ATROVENT) INH SCH (11:19)
[2023-08-06 12:31] VITALS: BP_SYST 162; PULSE 72; O2SAT 96
[2023-08-06] MEDS ORDERED: INSULIN Lispro 100 UNITS/ML, 3 ML VIAL (humaLOG) ONE (13:39)
[2023-08-06] MEDS: INSULIN REGULAR, HUMAN 100 UNITS/ML, 3 ML VIAL (humuLIN R) SUBCUT PRN (13:39)
[2023-08-06] MEDS ORDERED: TERA5CAP4 PO (16:13)
[2023-08-06] MEDS ORDERED: ROPI1TAB46 PO (16:26)
[2023-08-06] MEDS ORDERED: GABA-333 PO (16:26)
[2023-08-06] MEDS ORDERED: METF-381 PO (16:26)
[2023-08-06] MEDS ORDERED: FINA5TAB11 PO (16:35)
[2023-08-06] MEDS: lisinopriL 20 MG TABLET PO ONE (18:00)
[2023-08-06] MEDS: CARVEDILOL 3.125 MG TABLET (COREG) PO ONE (18:00)
[2023-08-06] MEDS: buPROPion HCL 150 MG XL TAB PO ONE (18:00)
[2023-08-06 20:29] VITALS: O2SAT 96
[2023-08-06 20:35] VITALS: BP_SYST 136; PULSE 87; RESP 18; TEMP 98.9; O2SAT 98
[2023-08-06 21:16] VITALS: BP_SYST 136; PULSE 87; RESP 18; TEMP 98.9; O2SAT 98
[2023-08-06] MEDS: ATORVASTATIN 10 MG TABLET PO SCH (22:53)
[2023-08-06] MEDS: lisinopriL 20 MG TABLET PO SCH (22:54)
[2023-08-06] MEDS: CARVEDILOL 3.125 MG TABLET (COREG) PO SCH (22:55)
[2023-08-06] MEDS: amLODIPine BESYLATE 10 MG TABLET PO SCH (22:55)
[2023-08-06] MEDS: INSULIN GLARGINE 100 UNITS/ML, 10 ML VIAL SUBCUT SCH (23:20)
[2023-08-06 23:57] VITALS: O2SAT 95
[2023-08-07] VITALS (7 sets, daily range): BP systolic 122–165; PULSE 71–85; RESP 16–18; TEMP 96.3–98.5; O2SAT 97–100
[2023-08-07 05:49] LABS: BASOPHILS % (AUTO) 0.3 % (0.0-2.0); EOSINOPHILS # (AUTO) 0.1 K/uL (0.0-0.4); EOSINOPHILS % (AUTO) 1.8 % (0.0-4.0); HEMATOCRIT 27.1 % (36-54); HEMOGLOBIN 9.3 g/dL (14.0-18.0); LYMPHOCYTES # (AUTO) 0.7 K/uL (1.0-5.5); LYMPHOCYTES % (AUTO) 10.9 % (20.5-51.5); MEAN CORPUSCULAR HEMOGLOBIN 31 pg (27-31); MEAN CORPUSCULAR HGB CONC 34 % (32-36); MEAN CORPUSCULAR VOLUME 91 fL (79.0-98.0); MONOCYTES # (AUTO) 0.5 K/uL (0.0-1.0); MONOCYTES % (AUTO) 7.9 % (1.7-9.3); NEUTROPHILS # (AUTO) 5.5 K/uL (1.8-7.7); NEUTROPHILS % (AUTO) 79.1 % (40.0-70.0); PLATELET COUNT (AUTO) 186 K/uL (130-430); RED BLOOD CELL COUNT(AUTO) 2.97 MIL/uL (4.2-6.2); RED CELL DISTRIBUTION WIDTH 13.4 % (9.0-15.0); WHITE BLOOD COUNT (AUTO) 6.9 K/uL (4.8-10.8)
[2023-08-07 06:28] LABS: ALANINE AMINOTRANSFERASE 44 U/L (12-78); ALBUMIN 2.4 g/dL (3.4-4.8); ANION GAP 9 (5-15); ASPARTATE AMINOTRANSFERASE 32 U/L (10-37); CALCIUM 7.8 mg/dL (8.4-11.0); CARBON DIOXIDE 27 mmol/L (23-29); CHLORIDE 103 mmol/L (98-107); CREATININE 1.23 mg/dL (0.55-1.30); GLUCOSE 80 mg/dL (74-106); POTASSIUM 3.9 mmol/L (3.5-5.1); SODIUM SERUM 139 mmol/L (136-145); TOTAL BILIRUBIN 0.2 mg/dL (0.0-1.0); TOTAL PROTEIN, SERUM 5.4 g/dL (6.4-8.3); UREA NITROGEN, BLOOD 19 mg/dL (8-21)
[2023-08-07] MEDS ORDERED: buPROPion HCL 150 MG XL TAB PO SCH (09:00)
[2023-08-07] MEDS: cefTRIAXone 1 GM IVPB PREMIX 50 ML IV SCH (10:15)
[2023-08-07] MEDS: busPIRone HCL 5 MG TABLET PO PRN (16:55)
[2023-08-07] MEDS: INSULIN GLARGINE 100 UNITS/ML, 10 ML VIAL SUBCUT SCH (22:55)
[2023-08-07] MEDS: MORPHINE 2 MG/ML INJ. SYRINGE IVP PRN (23:38)
[2023-08-08] VITALS (8 sets, daily range): BP systolic 124–151; PULSE 66–75; RESP 16–18; TEMP 96.6–98.4; O2SAT 93–98
[2023-08-08] MEDS: OXYCODONE/ACETAMINOPHEN *10*mg/325 mg TABLET PO PRN (04:31)
[2023-08-08 06:24] LABS: BASOPHILS % (AUTO) 0.4 % (0.0-2.0); EOSINOPHILS # (AUTO) 0.1 K/uL (0.0-0.4); EOSINOPHILS % (AUTO) 1.5 % (0.0-4.0); HEMATOCRIT 31.6 % (36-54); HEMOGLOBIN 11.1 g/dL (14.0-18.0); LYMPHOCYTES # (AUTO) 0.8 K/uL (1.0-5.5); LYMPHOCYTES % (AUTO) 9.3 % (20.5-51.5); MEAN CORPUSCULAR HEMOGLOBIN 32 pg (27-31); MEAN CORPUSCULAR HGB CONC 35 % (32-36); MEAN CORPUSCULAR VOLUME 90 fL (79.0-98.0); MONOCYTES # (AUTO) 0.8 K/uL (0.0-1.0); MONOCYTES % (AUTO) 9.1 % (1.7-9.3); NEUTROPHILS # (AUTO) 6.7 K/uL (1.8-7.7); NEUTROPHILS % (AUTO) 79.7 % (40.0-70.0); PLATELET COUNT (AUTO) 214 K/uL (130-430); RED BLOOD CELL COUNT(AUTO) 3.51 MIL/uL (4.2-6.2); RED CELL DISTRIBUTION WIDTH 13.8 % (9.0-15.0); WHITE BLOOD COUNT (AUTO) 8.4 K/uL (4.8-10.8)
[2023-08-08 07:06] LABS: ALANINE AMINOTRANSFERASE 50 U/L (12-78); ALBUMIN 2.7 g/dL (3.4-4.8); ANION GAP 8 (5-15); ASPARTATE AMINOTRANSFERASE 28 U/L (10-37); CALCIUM 8.6 mg/dL (8.4-11.0); CARBON DIOXIDE 29 mmol/L (23-29); CHLORIDE 102 mmol/L (98-107); CREATININE 1.24 mg/dL (0.55-1.30); GLUCOSE 76 mg/dL (74-106); POTASSIUM 4.7 mmol/L (3.5-5.1); SODIUM SERUM 139 mmol/L (136-145); TOTAL BILIRUBIN 0.2 mg/dL (0.0-1.0); TOTAL PROTEIN, SERUM 6.3 g/dL (6.4-8.3); UREA NITROGEN, BLOOD 20 mg/dL (8-21)
[2023-08-08] MEDS: CIPROFLOXACIN LACT 400 MG/D5W 200 ML IV ONE (14:08)
[2023-08-08] MEDS: LIDOCAINE PATCH 5% 1 EA TP ONE (15:14)
[2023-08-08] MEDS: BACLOFEN 10 MG TABLET PO SCH (15:14)
[2023-08-08] MEDS: CIPROFLOXACIN LACT 400 MG/D5W 200 ML IV SCH (21:04)
[2023-08-09] VITALS (8 sets, daily range): BP systolic 142–179; PULSE 67–85; RESP 18–19; TEMP 97.7–98.4; O2SAT 96–98
[2023-08-09] MEDS: DEXTROSE 50% JECT 50 ML DISP.SYRIN IVP PRN (05:41)
[2023-08-09] MEDS ORDERED: DEXTROSE 50% JECT 50 ML DISP.SYRIN ONE (05:43)
[2023-08-09] MEDS: LIDOCAINE PATCH 5% 1 EA TP SCH (09:10)
[2023-08-09 12:58] LABS: BASOPHILS % (AUTO) 0.4 % (0.0-2.0); EOSINOPHILS # (AUTO) 0.1 K/uL (0.0-0.4); EOSINOPHILS % (AUTO) 1.1 % (0.0-4.0); HEMATOCRIT 36.4 % (36-54); HEMOGLOBIN 12.6 g/dL (14.0-18.0); LYMPHOCYTES # (AUTO) 0.8 K/uL (1.0-5.5); LYMPHOCYTES % (AUTO) 9.1 % (20.5-51.5); MEAN CORPUSCULAR HEMOGLOBIN 31 pg (27-31); MEAN CORPUSCULAR HGB CONC 35 % (32-36); MEAN CORPUSCULAR VOLUME 90 fL (79.0-98.0); MONOCYTES # (AUTO) 0.9 K/uL (0.0-1.0); MONOCYTES % (AUTO) 10.2 % (1.7-9.3); NEUTROPHILS # (AUTO) 6.6 K/uL (1.8-7.7); NEUTROPHILS % (AUTO) 79.2 % (40.0-70.0); PLATELET COUNT (AUTO) 265 K/uL (130-430); RED BLOOD CELL COUNT(AUTO) 4.06 MIL/uL (4.2-6.2); RED CELL DISTRIBUTION WIDTH 13.7 % (9.0-15.0); WHITE BLOOD COUNT (AUTO) 8.4 K/uL (4.8-10.8)
[2023-08-09 13:14] LABS: ALANINE AMINOTRANSFERASE 43 U/L (12-78); ANION GAP 10 (5-15); ASPARTATE AMINOTRANSFERASE 34 U/L (10-37); CALCIUM 8.7 mg/dL (8.4-11.0); CARBON DIOXIDE 28 mmol/L (23-29); CHLORIDE 100 mmol/L (98-107); CREATININE 1.07 mg/dL (0.55-1.30); GLUCOSE 99 mg/dL (74-106); POTASSIUM 3.5 mmol/L (3.5-5.1); SODIUM SERUM 138 mmol/L (136-145); TOTAL BILIRUBIN 0.3 mg/dL (0.0-1.0); TOTAL PROTEIN, SERUM 6.9 g/dL (6.4-8.3); UREA NITROGEN, BLOOD 13 mg/dL (8-21)
[2023-08-10 00:11] VITALS: BP_SYST 144; PULSE 86; RESP 18; TEMP 97.6; O2SAT 96
[2023-08-10 09:15] VITALS: O2SAT 98
[2023-08-10] MEDS ORDERED: BACL10TA PO (10:30)
[2023-08-10] MEDS ORDERED: LIDO700A30 TP (10:30)
[2023-08-10] MEDS ORDERED: CIPR250T4 PO (10:30)
[2023-08-10 10:50] VITALS: BP_SYST 143; PULSE 77; RESP 20; TEMP 98.6; O2SAT 98
[2023-08-10 14:24] VITALS: BP_SYST 143; PULSE 77; RESP 18; TEMP 98.6; O2SAT 98
== END 2023-08-10 15:47 | disposition home health service (06) | DRG 551 ==
LOC: SED 21:13 → STU 08-06 02:48 → SMU 08-09 13:34
PROVIDERS: ADMIT Family Medicine; ATTEND Family Medicine
DX: M54.40 Lumbago with sciatica, unspecified side (principal); E43 Unspecified severe protein-calorie malnutrition; N39.0 Urinary tract infection, site not specified; E87.20 Acidosis, unspecified; Z68.1 Body mass index [BMI] 19.9 or less, adult; E88.09 Other disorders of plasma-protein metabolism, not elsewhere classified; I10 Essential (primary) hypertension; F41.9 Anxiety disorder, unspecified; D64.9 Anemia, unspecified; F32.A Depression, unspecified; E83.51 Hypocalcemia; B96.5 Pseudomonas (aeruginosa) (mallei) (pseudomallei) as the cause of diseases classified elsewhere; Z88.5 Allergy status to narcotic agent; Z79.899 Other long term (current) drug therapy; Z79.4 Long term (current) use of insulin; E11.65 Type 2 diabetes mellitus with hyperglycemia
CPT/HCPCS: 36415; 72131; 76376; 76770; 80048; 80053; 81000; 81001; 81015; 82948; 83037; 83605; 85025; 87040; 87086; 94640; 94760; 96374; 97110-GP; 97116-GP; 97530-GP; 99291; G0378; J0696; J0744; J1815; J1885; J2270